=== PATIENT | female | born 1965 | race Caucasian/White ===

== ENCOUNTER 2016-06-03 14:01 | Emergency (ER) | payer OTHER ==
[~2016-06-03] VITALS: Ht 165.1 cm; Wt 119.8 kg
[~2016-06-03 14:01] MED LIST: NOHOMEMEDS; VICODIN 5-3001 EACH PO
[2016-06-03 16:18] VITALS: BP 139/74
== END 2016-06-03 16:19 | disposition home or self-care (01) ==
LOC: EME 14:01
DX: M79.662 Pain in left lower leg (principal); R22.42 Localized swelling, mass and lump, left lower limb; Z87.891 Personal history of nicotine dependence
CPT/HCPCS: 93971; 99281; 99284

== ENCOUNTER 2017-10-30 15:04 | Emergency (ER) | payer OTHER ==
[~2017-10-30] VITALS: Ht 165.1 cm; Wt 100.6 kg
[2017-10-30] MEDS ORDERED: PREDNISONE50 MG PO (17:59)
[2017-10-30] MEDS ORDERED: MOTRIN600 MG PO (17:59)
[2017-10-30 18:17] VITALS: BP 143/95
== END 2017-10-30 18:17 | disposition home or self-care (01) ==
LOC: EME 15:04
DX: S29.012A Strain of muscle and tendon of back wall of thorax, initial encounter (principal); X50.1XXA Overexertion from prolonged static or awkward postures, initial encounter
CPT/HCPCS: 99281; 99283